=== PATIENT | male | born 1990 | race Caucasian/White ===

== ENCOUNTER 2020-12-17 08:28 | Emergency (ER) | payer OTHER ==
[~2020-12-17] VITALS: Ht 180.3 cm; Wt 117.9 kg
[~2020-12-17 08:28] MED LIST: CEFADROXIL500 MG PO
[2020-12-17] MEDS ORDERED: ATORVASTATIN CA40 MG (08:44)
== END 2020-12-17 15:48 | disposition home or self-care (01) ==
LOC: ER 08:28
DX: K59.09 Other constipation (principal); R10.84 Generalized abdominal pain

== ENCOUNTER 2024-08-25 15:50 | Emergency (ER) | payer OTHER ==
[~2024-08-25] VITALS: Ht 180.3 cm; Wt 138.3 kg
[~2024-08-25 15:50] MED LIST changes: +ATORVASTATIN CA40 MG
[2024-08-25 18:06] LABS: HEMATOCRIT 41.5 % (39.0-48.0); HEMOGLOBIN 14.4 g/dL (13-16.00); MEAN CELL VOLUME 87.1 fL (80.0-100.00); MEAN CORPUSCULAR HEMOGLOBIN 30.2 pg (27.00-32.0); MEAN CORPUSCULAR HGB CONC 34.7 g/dl (32.0-36.0); PLATELET COUNT 322 K/uL (150-450); RED BLOOD COUNT 4.77 M/uL (4.00-6.00); RED CELL DISTRIBUTION WIDTH 13.4 % (11.5-14.5)
[2024-08-25 18:09] LABS: PH,URINE 5.5 (5.0-8.0); URINE APPEARANCE Clear; URINE BILIRRUBIN Negative (NEGATIVE); URINE BLOOD Negative; URINE COLOR Yellow; URINE GLUCOSE Negative (NEGATIVE); URINE KETONE Negative (NEGATIVE); URINE LEUKOCYTE Negative; URINE NITRATE Negative; URINE PROTEIN Negative (NEGATIVE); URINE UROBILINOGEN 0.2 E.U./dl
[2024-08-25 18:10] LABS: URINE BACTERIA 18.3 uL (0.0-1933); URINE EPITHELIAL CELLS 0.1 uL (0.0-38.8); URINE RBC 2.9 uL (0.0-20.8); URINE WBC 1.7 uL (0.0-23.2)
[2024-08-25 18:37] LABS: CALCIUM 9.5 mg/dL (8.5-10.1); CREATININE SERUM 1.04 mg/dL (0.70-1.30); GFR 81.27; POTASSIUM 4.67 mEq/L (3.5-5.1)
== END 2024-08-25 20:54 | disposition home or self-care (01) ==
LOC: ER 15:53
PROVIDERS: General Practice
DX: R10.30 Lower abdominal pain, unspecified (principal)